=== PATIENT | male | born 1995 | race Caucasian/White ===

== ENCOUNTER 2025-03-18 00:24 | Outpatient (CLI) | payer MEDICARE, MEDICAID, SELFPAY ==
[2025-03-18 14:15] LABS: Abs Immature Grans 0.01 10^3/uL (0.0-0.06); HCT 47.3 % (40.0-50.0); HGB 16.0 g/dL (13.5-17.5); Immature Grans % 0.2 %; MCH 30.8 pg (27.0-33.0); MCHC 33.8 % (32.0-36.0); MCV 91 fL (80-95); MPV 11.1 fL (8.0-11.0); Platelet Count 230 10^3/uL (130-400); RBC 5.19 10^6/uL (4.36-5.78); RDW 11.7 % (11.8-14.1); RDW-SD 38.9 fL; WBC 5.17 10^3/uL (4.4-10.8)
[2025-03-18 14:29] LABS: ALT 24 U/L (16-63); AST 24 U/L (15-37); Albumin 4.4 g/dL (3.4-5.0); Alkaline Phosphatase 44 U/L (46-116); Anion Gap 5.5 mmol/L (3-11); BUN 11 mg/dL (7-18); Bilirubin, Total 1.2 mg/dL (0.2-1.0); CO2 29.5 mmol/L (21.0-32.0); Calcium 9.3 mg/dL (8.5-10.1); Calculated LDL 117 mg/dL (<100); Chloride 104 mmol/L (98-107); Cholesterol 179 mg/dL (<200); Estimated GFR 93.77 (mL/min/1.73m2); Glucose 94 mg/dL (74-106); HDL Cholesterol 48 mg/dL (>or=40); Potassium 4.7 mmol/L (3.5-5.1); Sodium 139 mmol/L (136-145); TSH (W/Ref FT4) 1.11 uIU/mL (0.36-3.74); Total Protein 7.6 g/dL (6.4-8.2); Triglyceride 72 mg/dL (<150)
== END 2025-03-18 00:25 | disposition home or self-care (01) ==
LOC: LOS 00:25
PROVIDERS: PCP Nurse Practitioner Family; Visit Provider Nurse Practitioner Family
DX: Z00.00 Encounter for general adult medical examination without abnormal findings (principal)
CPT/HCPCS: 36415; 80053; 80061; 84443; 85025

== ENCOUNTER 2025-06-01 16:01 | Emergency (ER) | payer MEDICARE, MEDICAID, SELFPAY ==
[2025-06-01 16:04] VITALS: BP 157/89; PULSE 68; RESP 20; TEMP 37.1; O2SAT 95
--- NOTE | 2025-06-01 17:27 | PDOC.MHCN ---
Date of service: 06/01/25 Time of Service: 10:00 Mental Health Emergency Note Release [facility] release signed:: Yes Reason for Visit Passive Suicidality In the last 2 weeks has the pt presented for ES prior to today?: No Client Information Client is: IDDS Well Housed: Yes Non Suicidal Self Injury Current: No History: No Safety Risk/Harm to Self or Others Current Ideation to Harm Self or Others: No CALM/Risk Level Does risk to harm exist?: yes. Access to means: No. Risk: Low Risk Duty to warn indicated: No Asssessment/Mental Status Appearance: Unremarkable Attitude: Guarded Behavior: Hyperactivity (Client needed multiple breaks during assessment where he would walk out and return after walking downstairs and back.) Speech: Incoherent Affect: Cogruent with mood Mood: Sad and Depressed Thought process: Poverty of content Hallucinations: No evidence Delusions: No evidence Attention: Unremarkable Perception: Other (Client reports an ongoing romantic relationship with [facility] staff that had been working with him around employment. Client has escalated in the last 4-6 weeks since that staff has changed jobs in the agency.) Orientation: Fully orientated Memory: Intact Insight: Poor Judgement: Poor Substance Use: Have you used substances in the last 7 days?: yes, Client reports alcohol use. Not able to engage around frequency and amount at time of follow up. Additional Issues: Assaultive/Threatening Behavior: No Medical Concerns: No Client engaged in active self harm w/weapon: No Threatening to run away: No Child reported abuse/neglect: No Voluntarily presenting for services: Yes Domestic violence is a concern: No Extreme Psychosis or extreme behavior is present: No Impression Client is 29 y/o male who is familiar to the DS Division of [facility], but unfamiliar to the Mobile Crisis Team. He presents in the context of a meeting where he is being confronted about a fixation he has developed with a female DS worker from [facility] who he wants to have a romantic relationship with. This signwriter observes that during the meeting the client has poor eye contact and his body language is guarded and closed off. He reports feeling depressed and suicidal, and on a couple of occasions during assessment he states I'm just going to go kill myself. The client does not go into details about how he might do this or his level of intent, even when prompted to do so. Client took space from the meeting at one point, and when returning he saw and confronted the staff he is fixated on outside of the office we were meeting in. Client struggled to disengage with the staff person, despite their stating clearly that they had a professional relationship and that dating was not and would never be an option. When client continued to try to argue, the staff person was encouraged to disengage and leave for an appointment they had with another client. Client then rejoined the assessment, and this is when he started to say I'm just going to go kill myself. He wasn't able to verbalize a clear plan or engage around his level of intent. Despite these suicidal statements, he continued to also make future oriented statements about a dance he will be attending today that he states he is looking forward to. Client was not highly engageable towards the end of our assessment. He was with staff who were going to transport him to a dance. Client was agreeable to in-person follow up with ES at 4p, when he would be back at [facility] to participate in groups. Resources [facility] reviewed and given:: [phone], [facility] and Other Plan/Disposition Recommended Disposition: Other. Plan: At time of assessment (10a) client participated in a Safety Plan with follow up to occur at 4p in-person with clinician. Client followed up in-person and participated in further Safety Planning for being home tonight. Person reported agreement to plan: Yes Reports/communication Outcome discussed with: Other (Safety Plan reviewed with staff working with client.)
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
[2025-06-01 18:56] LABS: Cannabinoids THC Negative (Negative)
--- NOTE | 2025-06-02 06:51 | ED.PSYCHBOAR ---
Date of service: 06/02/25 Time of Service: 07:00 Psychiatric Border Handoff Update Brief Story: In brief, this is a 29-year-old male patient with a past medical history significant for microcephaly, intellectual disability, hyperlipidemia, boarding voluntarily in our emergency department with suicidal ideation. Prior to my taking over their care, the patient was medically cleared, and has been resting comfortably. They have met with the psych social worker and we are awaiting final dispo. They have not required any additional medications for restraint or sedation. They have been admitted to ED psych observation. Ultimately, this morning the patient was [facility] with a outpatient care provider, with a plan for ongoing outpatient behavioral health supports. At this time, the patient has had a full medical evaluation and is safe for discharge to home. They are hemodynamically stable, ambulatory, and tolerating PO. They are understanding of the follow-up plan and return precautions. They left our facility without incident. Clarisa Dewey MD Status: voluntary Able to leave: yes Behavioral Concerns: None Potential Disposition: d/c to [facility] Mediation Reconciliation performed: Yes Code Status ordered: Yes Diet ordered: Yes Discharge Plan Disposition Patient Disposition: Home Condition: Stable Discharge Details Clinical Impression: Depression with suicidal ideation Primary Care Provider: Nataly Burger ED Provider: Clarisa Dewey Home Meds and New Rx's Prescriptions: No Action No Known Home Meds Discharge Instructions Instructions: Suicide Prevention Additional Instructions: You were seen in the emergency department today for evaluation of suicidal ideation. In our department you had a full physical examination performed, and were evaluated by a member of the crisis team. You are being discharged to [facility] for ongoing outpatient supports. Please follow all aspects of your safety plan, and follow-up with your outpatient providers. Please follow-up with your primary care provider in the next few days to discuss this visit and any symptoms that change, worsen, or persist. Thank you for allowing us to be part of your care. Stand Alone Forms: Portal Information
--- NOTE | 2025-06-02 07:19 | CMSP_ITS ---
Date of service: 06/02/25 Time of Service: 07:33 Care Management Safety Plan Status Status: Voluntary Reason for Wait Reason for Wait: Inpatient Admission Safety Plan Safety Plan: VOLUNTARY FOR INPATIENT PSYCHIATRIC STABILIZATION. Patient is appropriate in all interactions since arriving at [facility]; Pt has demonstrated appropriate coping and communication skills, has articulated his or her needs and concerns and is fully engaged during staff interactions. Safety plan has been established with patient, and care team, to adhere to patient goals, identify restrictions based on behavioral status, address nutrition, and determine allowed personal belongings, tools for hygiene and personal care. Determine level of activity including ambulation, level of supervision, visitors, and determine privileges based on behaviors and level of engagement by pt. VOLUNTARY SAFETY PLAN: 1. Will remain on suicide precautions, in paper clothes. 2. Will remain in Zone B under direct supervision of one-on-one staff at all times provided by [employer]; [employer], PROPERTY ACCOUNTANT workforce investment act career manager. 3. May have paper cups, plates, finger foods as well as a cardboard spoon with which to eat meals. 4. Follow [facility] Management of the Admitted Behavioral Health Patient policy. 5. Shower available in Zone B without restriction. 6. Personal belongings-soft items permitted at RN discretion. 7. Visitors- supportive visitors, at RN discretion. 8. Activities: soft cart items approved per RN discretion. 9. Bathroom available in Zone B without restriction. 10. Phone: limited to [facility] cordless phone at RN discretion. Due to VOLUNTARY status, if patient wishes to leave [facility], staff will contact [facility] Crisis Screener ([phone]) and Draw Operator ([phone]) as soon as possible. In the event of elopement, notify [facility] Police ([phone]). Patient is currently voluntarily at [facility] and seeking inpatient admission when a bed becomes available. [facility] Frontline Sales/Marketing will continue seeking placement. Please contact the Draw Operator ([phone]) and [facility] Sales/Marketing ([phone]) for any needed changes in the Safety Plan. Safety plan has been provided to interdepartmental care team.
--- NOTE | 2025-06-02 07:19 | CMPROGNOTE_ITS ---
Date of service: 06/02/25 Time of Service: 09:34 Care Management Progress Note Progress Note Text Progress Note Text: CM discussed plan of care with ED RN. Per report, Ricky will be picked up by [facility] and brought to front porch, today. CM will follow. Social Determinants of Health Screening Will the Patient Participate in the Screening?: Declined to provide
--- NOTE | 2025-06-02 08:18 | NUR.NOTE ---
Nursing Note: 0750- Patient still here despite being told in report that he was being picked up at 0730 by [facility] to be transported to [facility]. No documentation by [facility] in chart, paged regional foresterunit control worker for clarification on dispo/plan.
== END 2025-06-02 08:40 | disposition home or self-care (01) ==
PROVIDERS: Registered Nurse Emergency; Emergency Provider Emergency Medicine; PCP Nurse Practitioner Family
DX: F32.A Depression, unspecified (principal); R45.851 Suicidal ideations; Z59.811 Housing instability, housed, with risk of homelessness
CPT/HCPCS: 00123; 80307; 99285; G0378